=== PATIENT | male | born 1995 | race Caucasian/White ===

== ENCOUNTER 2021-09-04 16:17 | Emergency (ER) | payer OTHER, SELFPAY ==
[2021-09-04 16:19] VITALS: BP 127/81; PULSE 111; RESP 18; TEMP 36.6; O2SAT 98
--- NOTE | 2021-09-04 17:05 | PC.NURSE ---
Patient not found in [facility].
--- NOTE | 2021-09-04 17:54 | ED.GENADULT ---
HPI - General Adult General Chief complaint: Unspecified Stated complaint: sore throat Time Seen by Provider: 09/04/21 17:31 Source: patient Mode of arrival: ambulatory Limitations: no limitations History of Present Illness HPI narrative: Patient is a 25-year-old male complaining of a sore throat x5 days accompanied by fever. Patient states that he was seen in urgent care 3 days ago had a strep test done, was told it was negative, and was prescribed amoxicillin. Patient states he is able to swallow but it just hurts . Patient denies any chest pain, shortness of breath, abdominal pain, nausea or vomiting. Related Data Allergies Allergy/AdvReac Type Severity Reaction Status Date / Time No Known Allergies Allergy Unknown Unknown Verified 05/26/19 18:59 Review of Systems Review of Systems: All systems reviewed & are unremarkable except as noted in HPI and below Constitutional: Constitutional: Denies body ache(s), Denies chills, Denies excessive sweating, Denies fatigue, Denies fever(s), Denies headache(s), Denies lethargy, Denies malaise, Denies weakness and Denies weight loss Eyes: Eyes: Denies blurry vision, Denies change in vision and Denies loss of vision ENT: Denies dizziness, Denies ear discharge, Denies headache(s), Denies lip swelling, Denies epistaxis, Denies nasal congestion, Denies neck pain and Denies tongue swelling Cardiovascular: Cardiovascular: Denies chest pain, Denies chest pain at rest, Denies chest pain with activity, Denies diaphoresis, Denies rapid heart rate, Denies edema, Denies irregular heart rhythm, Denies lightheadedness, Denies palpitations, Denies dyspnea and Denies dyspnea on exertion Respiratory: Respiratory: Denies chest congestion, Denies cough, Denies hemoptysis, Denies dyspnea and Denies dyspnea on exertion Gastrointestinal: Gastrointestinal: Denies abdominal pain, Denies melena, Denies hematochezia, Denies diarrhea, Denies nausea, Denies vomiting and Denies hematemesis Musculoskeletal: Musculoskeletal: Denies abnormal gait, Denies deformity, Denies joint swelling, Denies limited range of motion, Denies neck pain and Denies numbness Neurologic: Denies Abnormal speech present, Denies abnormal gait, Denies confusion, Denies dizziness, Denies headache(s), Denies focal weakness, Denies loss of vision, Denies numbness, Denies Other visual disturbances, Denies Sensory deficit (Neuro) and Denies weakness Psychiatric: Psychiatric: Denies confusion, Denies depression, Denies auditory hallucinations, Denies homicidal ideation and Denies suicidal ideation Endocrine: Endocrine: Denies cold intolerance, Denies excessive sweating, Denies fatigue, Denies heat intolerance and Denies palpitations Hematologic/Lymphatic: Hematologic/Lymphatic: Denies easy bleeding and Denies easy bruising Allergic/Immunologic: Allergic/Immunologic: Denies lip swelling, Denies throat swelling and Denies tongue swelling PMFSH Comments Past medical history: None Family history: Unknown Social history: Vapes, no EtOH or drug use Exam Const: General: cooperative, healthy appearing, comfortable, no acute distress, well developed, alert and awake; No confusion Orientation/consciousness: oriented to person, oriented to place, oriented to time, patient oriented x3 and No confusion Limitations: no limitations HENMT: Head: normal to inspection, normocephalic and atraumatic Ears: hearing grossly normal bilaterally, TM normal on the right and TM normal on the left General nose exam: Normal external nose present, Normal nares present and No nasal discharge present Face and sinus: normal facial exam Mouth: Yes Normal oral and palatal mucosa present, Yes lip normal and Yes tongue normal Throat: posterior oropharynx abnormal edema, erythema and exudates and uvular edema Eyes: General: appearance normal, both eyes and all related structures Pupils: Equal, round and reactive pupils present EOM: EOMs intact bilaterally Neck: Neck: normal visual
[2021-09-04 18:14] VITALS: BP 140/77; PULSE 80; RESP 18; O2SAT 99
== END 2021-09-04 18:10 | disposition home or self-care (01) ==
PROVIDERS: Emergency Provider Emergency Medicine; PCP Pediatrics
DX: J02.9 Acute pharyngitis, unspecified (principal)
CPT/HCPCS: 99283; J1100

== ENCOUNTER 2023-07-18 15:29 | Emergency (ER) | payer OTHER, SELFPAY ==
[2023-07-18 15:40] VITALS: BP 130/86; PULSE 71; RESP 18; TEMP 36.9; O2SAT 100
[2023-07-18 16:09] LABS: Basophils Absolute Auto 0.1 K/mm3 (0.0-0.1); Eosinophils Absolute Auto 0.3 K/mm3 (0-0.3); Eosinophils Percent Auto 4.6 % (0-4.4); Hematocrit 44.5 % (42.0-52.0); Hemoglobin 14.9 g/dL (14.0-18.0); Immature Granulocyte Absolute 0.02 K/mm3 (0.00-0.031); Immature Granulocyte Percent A 0.3 % (0-0.5); Lymphocytes Absolute Auto 2.32 K/mm3 (0.9-3.2); Lymphocytes Percent Auto 39.1 % (18.3-44.2); Mean Corpuscular HGB Conc 33.5 g/dl (32-36); Mean Corpuscular Hemoglobin 27.7 pg (26-34); Mean Corpuscular Volume 82.9 fl (80-100); Mean Platelet Volume 10.9 fl (7.4-10.4); Monocytes Absolute Auto 0.7 K/mm3 (0.1-0.6); Monocytes Percent Auto 11.1 % (2.6-8.5); Neutrophils Absolute Auto 2.6 K/mm3 (1.3-6.7); Neutrophils Percent Auto 43.9 % (45.5-73.1); Platelet Count Result 173 k/mm3 (150-375); Red Blood Count 5.37 M/mm3 (4.6-6.20); Red Cell Distribution Width 12.4 % (11.5-14.5); White Blood Count 5.9 K/mm3 (4.5-10.0)
[2023-07-18 16:27] LABS: INR 1.1; Prothrombin Time 14.1 Seconds (11.1-14.7)
[2023-07-18 16:28] LABS: Partial Thromboplastin Time 29.3 SECONDS (22.3-36.8)
[2023-07-18 16:36] LABS: Alanine Aminotransferase 58 U/L (6-50); Albumin Level 4.6 g/dL (3.5-5.1); Alkaline Phosphatase 62 U/L (38-126); Anion Gap 9 mmol/L (8-16); Aspartate Amino Transferase 37 U/L (17-59); Bilirubin,Total 0.6 mg/dL (0.2-1.3); Blood Urea Nitrogen 15 mg/dL (9-20); Calcium 9.3 mg/dL (8.4-10.2); Carbon Dioxide 23 mmol/L (22-30); Chloride 108 mmol/L (98-107); Estimated CRCL calculation 169 ml/min; Estimated Glomerular Filt Rate > 60; Glucose 100 mg/dL (65-110); Sodium 140 mmol/L (137-145)
[2023-07-18 20:16] VITALS: BP 138/98; PULSE 82; RESP 14; O2SAT 100
--- NOTE | 2023-07-18 20:50 | ED.GENADULT ---
HPI - General Adult General Chief complaint: GI Bleed Stated complaint: rectal bleeding Time Seen by Provider: 07/18/23 20:26 History of Present Illness HPI narrative: Patient is a 27-year-old male who presents to the emergency department this evening complaining of bloody stools which he noticed today. patient states that after he had a bowel movement he noticed that there was blood in the toilet bowl, his stools were brown and a normal, blood was noted in the toilet bowl but not in the stool. Patient denies any history of hemorrhoids or any previous symptoms denies any history inflammatory bowel disease including Crohn's and ulcerative colitis. Patient denies any chest pain, shortness of breath, nausea, vomiting, abdominal pain, dysuria, hematuria, constipation, diarrhea, melena, hematochezia, fevers or chills. Patient also denies any headaches, dizziness, lightheadedness, blurry visions, focal weakness, numbness and or tingling. There are no other modifying, alleviating, or precipitating factors at this time. Related Data Allergies Allergy/AdvReac Type Severity Reaction Status Date / Time bee venom protein (honey bee) Allergy Swelling Verified 07/18/23 20:19 [bees] Review of Systems Review of Systems: All systems are reviewed and are negative unless stated otherwise in the HPI. Exam Narrative: General: Alert, awake, afebrile, in no acute distress. HEENT: PERRL, no rhinorrhea, no post nasal drip, oropharynx clear. Neck: Trachea midline, no JVD, no lymphadenopathy. Cardiovascular: Regular rate and rhythm, no murmurs, rubs or gallops, no peripheral edema. Respiratory: Clear to auscultation bilaterally, no tachypnea, no wheezing, no rhonchi, no rubs, no respiratory distress. Abdomen: Soft, nontender, nondistended, no rebound, no guarding, no peritoneal signs. Rectal: Exam performed the presence of female legal intern revealed normal external rectum, no fissures, no external hemorrhoids, digital rectal exam performed with fecal occult blood test performed and noted to be positive. No masses palpated during a digital rectal exam. Patient tolerated the procedure well. Musculoskeletal: No joint swelling or deformity, normal muscle tone. Skin: No rashes or petechia, no signs of infection. Psychiatric: Alert and oriented, normal behavior and judgment for situation. Neurological: Alert and oriented to person, place, and time. Follows all commands. No focal deficits, speech is clear and fluent. Course Vital Signs Vital signs: Vital Signs Temperature 98.5 F 07/18/23 15:40 Pulse Rate 71 07/18/23 15:40 Respiratory Rate 18 07/18/23 15:40 Blood Pressure 130/86 07/18/23 15:40 Pulse Oximetry 100 07/18/23 15:40 Oxygen Delivery Room Air 07/18/23 15:40 Temperature 98.5 F 07/18/23 15:40 Pulse Rate 70 07/18/23 21:06 Respiratory Rate 20 07/18/23 21:06 Blood Pressure 132/81 07/18/23 21:06 Pulse Oximetry 98 07/18/23 21:06 Oxygen Delivery Room Air 07/18/23 15:40 Medical Decision Making MDM Narrative Medical decision making narrative: The patient was evaluated by myself in the emergency department. History is obtained from patient who is an independent historian and physical exam was performed. External medical records were reviewed at this time. IV was established and pertinent tests were ordered. Laboratory results obtained revealing no lab abnormality, hemoglobin 14.9, BUN 15, creatinine 0.80. Differential diagnosis considerations include external versus internal hemorrhoids, fissures, and upper versus lower GI bleed. I have evaluated and discussed social determinants of health with the patient that could potentially impact subsequent diagnosis and treatment plans. On repeat assessment of the patient, reevaluation revealed that the patient is doing well and is in no acute distress. Patient symptoms have improved since he arrived to our emergency department. Repeat vit
[2023-07-18 21:06] VITALS: BP 132/81; PULSE 70; RESP 20; O2SAT 98
[2023-07-18 21:35] VITALS: BP 134/80; PULSE 63; RESP 12; O2SAT 98
== END 2023-07-18 21:35 | disposition home or self-care (01) ==
PROVIDERS: Emergency Medicine; Emergency Provider Emergency Medicine
DX: K92.1 Melena (principal)
CPT/HCPCS: 36415; 80053; 85025; 85610; 85730; 86850; 86900; 86901; 99283

== ENCOUNTER 2023-09-23 22:22 | Emergency (ER) | payer OTHER, SELFPAY ==
--- NOTE | ~2023-09-23 | XR_ITS ---
Clinical Indication: Fever PA and lateral views of the chest: Comparison: None Findings: The lungs are clear, without evidence of focal consolidation or pleural effusion. Cardiome diastinal silhouette is within normal limits. Bones and soft tissues are unremarkable. Impression: Normal chest. Reviewed, dictated and finalized at [facility]. [employer] Impression: Normal chest.
--- NOTE | ~2023-09-23 | CT_ITS ---
EXAMINATION: CT abdomen pelvis w con INDICATION: Back pain and vomiting TECHNIQUE: Computed tomographic images of the abdomen and pelvis were obtained after the administrati on of 100 cc of Omnipaque 350 intravenous contrast. The dose-length product (DLP) was 1524.99 mGy-cm. Automated exposure control and iterative reconstruction technique were employed. COMPARISON: None available FINDINGS: The lung bases are clear. The heart size is normal. The liver, spleen, pancreas, gallbladde r, and adrenal glands are normal. The kidneys are unremarkable. No pathologically enlarged abdominal or pelvic lymph nodes are identified. No free intraperitoneal gas or evidence of bowel obstruction. T he appendix is normal. There is an umbilical hernia containing fat. There are widespread subpleural a reas of hazy infiltration of the subcutaneous fat of the abdomen, pelvis, and proximal thighs unclear etiology. Correlate for bruising or injection sites. IMPRESSION: 1. No CT correlate for the patient's symptoms. Reviewed, dictated and finalized at location [facility]. ER ROOM MANAGER
[2023-09-23 22:24] VITALS: BP 159/110; PULSE 129; RESP 20; TEMP 37.9; O2SAT 100
[2023-09-23 23:16] LABS: Basophils Percent Auto 0.4 % (0.2-1.2); Eosinophils Absolute Auto 0.1 K/mm3 (0-0.3); Eosinophils Percent Auto 0.8 % (0-4.4); Hematocrit 42.5 % (42.0-52.0); Hemoglobin 14.4 g/dL (14.0-18.0); Immature Granulocyte Absolute 0.02 K/mm3 (0.00-0.031); Immature Granulocyte Percent A 0.2 % (0-0.5); Lymphocytes Absolute Auto 1.02 K/mm3 (0.9-3.2); Lymphocytes Percent Auto 12.1 % (18.3-44.2); Mean Corpuscular HGB Conc 33.9 g/dl (32-36); Mean Corpuscular Hemoglobin 28.1 pg (26-34); Mean Corpuscular Volume 82.8 fl (80-100); Mean Platelet Volume 10.6 fl (7.4-10.4); Monocytes Absolute Auto 0.9 K/mm3 (0.1-0.6); Monocytes Percent Auto 10.7 % (2.6-8.5); Neutrophils Absolute Auto 6.4 K/mm3 (1.3-6.7); Neutrophils Percent Auto 75.8 % (45.5-73.1); Platelet Count Result 163 k/mm3 (150-375); Red Blood Count 5.13 M/mm3 (4.6-6.20); White Blood Count 8.4 K/mm3 (4.5-10.0)
--- NOTE | 2023-09-23 23:19 | PC.NURSE ---
Pt states his lower bilateral legs are swollen and painful. Pt notes he has developed some red patches on the lower part of his legs as well. Pt also reports the same type of pain in his lower back however there are no red patches present. Pt denies any itching.
[2023-09-23 23:22] LABS: Influenza A QL RT-PCR Negative (Negative); Influenza B QL RT-PCR Negative (Negative); RSV RNA, RT-PCR Negative (Negative); SARS-CoV-2 RNA PCR Negative (Negative)
[2023-09-23 23:27] LABS: Appearance Urine Clear (Clear); Bilirubin Urine Negative (Negative); Blood Urine Negative (Negative); Color Urine Yellow (Yellow); Glucose Urine UA Negative (Negative); Ketones Urine 1+ mg/dL (Negative); Leukocyte Esterase Ur Negative LEU/UL (Negative); Nitrate Urine Negative (Negative); Protein Urine Negative (Negative); Specific Grav Ur 1.028 (1.001-1.035); pH Urine 6.5 (5.0-9.0)
[2023-09-23 23:27] LABS: Alanine Aminotransferase 38 U/L (6-50); Albumin Level 4.5 g/dL (3.5-5.1); Alkaline Phosphatase 78 U/L (38-126); Anion Gap 7 mmol/L (8-16); Aspartate Amino Transferase 28 U/L (17-59); Bilirubin,Total 1.1 mg/dL (0.2-1.3); Blood Urea Nitrogen 15 mg/dL (9-20); Calcium 9.3 mg/dL (8.4-10.2); Carbon Dioxide 28 mmol/L (22-30); Chloride 102 mmol/L (98-107); Creatine Kinase 82 U/L (55-170); Estimated CRCL calculation 166 ml/min; Estimated Glomerular Filt Rate > 60; Glucose 117 mg/dL (65-110); Lipase 135 U/L (23-300); Potassium 3.5 mmol/L (3.4-5.0); Sodium 137 mmol/L (137-145)
--- NOTE | 2023-09-23 23:35 | ED.GENADULT ---
HPI - General Adult General Chief complaint: Unspecified Stated complaint: bilateral leg pain, headache, acid reflux, Time Seen by Provider: 09/23/23 22:42 Source: patient Mode of arrival: ambulatory Limitations: no limitations History of Present Illness HPI narrative: This is a 27 year old male that presents to the ER for symptoms present over the last couple of days. Reports fever, headache, vomiting, arthralgia. Reports pain in his low back and hips. Reports today he started to note tender painful nodules on his bilateral lower legs. Denies chest pain or shortness of breath. Related Data Allergies Allergy/AdvReac Type Severity Reaction Status Date / Time bee venom protein (honey bee) Allergy Swelling Verified 07/18/23 20:19 [bees] Review of Systems Review of Systems: CONSTITUTIONAL: Reports fever ENT: Denies rhinorrhea, congestion, sore throat CARDIOVASCULAR: Denies chest pain RESPIRATORY: Denies cough or dyspnea. GASTROINTESTINAL: Reports nausea and vomiting. Denies abdominal pain, or diarrhea. GENITOURINARY: Denies dysuria MUSCULOSKELETAL: Reports back pain, joint pain, and myalgia. NEUROLOGIC: Denies numbness, or weakness. All systems reviewed & are unremarkable except as noted in HPI and below PMFSH Past Medical History Medical History (Updated 09/24/23 @ 00:49 by Varsha Finch PA-C) No active medical problems Social History Social History (Updated 09/23/23 @ 23:42 by Varsha Finch PA-C) Smoking status: Current every day smoker Tobacco type: e-cigarettes/vaping Exam Narrative: GENERAL: Well-appearing, well-nourished, and in no acute distress. HEAD: Normocephalic, atraumatic. EYES: PERRLA and EOMI. ENT: Nares clear, no rhinorrhea or epistaxis. Mucous membranes moist. Oropharynx without tonsillar hypertrophy exudate or other lesions. Bilateral TMs pearly tristan non-bulging NECK: Supple. No adenopathy or masses. CHEST: Clear to auscultation. No respiratory distress. No wheezes rales or rhonchi HEART: Regular rate and rhythm. No murmur heard. Normal peripheral pulses. ABDOMEN: Soft, nontender, nondistended, normal active bowel sounds. EXTREMITIES: Normal range of motion. No edema. Normal DP pulses. Normal sensation. Strength equal in bilateral lower extremities (5/5) SKIN: Warm, dry. Tender, painful red nodules on the bilateral lower legs NEURO: No focal deficits. Alert and oriented x3. Cranial nerves 2-12 grossly intact. Normal gait PSYCH: Normal mood and affect Course Course Emergency Course: Patient updated on his workup. Resting comfortably. Agrees with plan of care Vital Signs Vital signs: Vital Signs Temperature 100.2 F H 09/23/23 22:24 Pulse Rate 129 H 09/23/23 22:24 Respiratory Rate 20 09/23/23 22:24 Blood Pressure 159/110 H 09/23/23 22:24 Pulse Oximetry 100 09/23/23 22:24 Oxygen Delivery Room Air 09/23/23 22:24 Temperature 100.2 F H 09/23/23 22:24 Pulse Rate 100 09/24/23 00:34 Respiratory Rate 15 09/24/23 00:34 Blood Pressure 135/85 09/24/23 00:34 Pulse Oximetry 98 09/24/23 00:34 Oxygen Delivery Room Air 09/23/23 22:24 Medical Decision Making [facility] Narrative Medical decision making narrative: Patient presents to the emergency department for fever, low back pain, bilateral lower extremity painful nodules. Febrile and tachycardic upon arrival. Given antipyretic and IV fluids with relief. He is nontoxic appearing. He is neurologically intact. CBC without leukocytosis. Lactic acid is not elevated. UA without evidence of infection. Chest x-ray without acute cardiopulmonary abnormality. CT abdomen/pelvis without acute findings. Influenza, strep, COVID, RSV and mono tests are negative. Patient with likely viral infection causing erythema nodosum. Will be started on anti-inflammatories. He was updated on his workup and agrees with plan of care. He is to follow up with PCP. He was given warnings to return to the ER Vital Signs Vital Signs
[2023-09-23 23:43] LABS: Add Urine Microscopic? YES
[2023-09-23 23:55] LABS: Partial Thromboplastin Time 34.7 SECONDS (22.3-36.8); Prothrombin Time 13.7 Seconds (11.1-14.7)
[2023-09-24 00:10] LABS: Erythrocyte Sedimentation Rate 26 mm/hr (0-20)
[2023-09-24] MEDS: KETOROLAC 15 MG/ML VIAL (*BKC) IV PUSH (00:16)
[2023-09-24] MEDS: ONDANSETRON INJ 4 MG/2 ML VIAL IV PUSH (00:17)
[2023-09-24] MEDS: FAMOTIDINE 20 MG/2 ML VIAL IV PUSH (00:17)
[2023-09-24] MEDS: SODIUM CHLORIDE 0.9% IV 1,000 ML 999 ML IV CONT (00:17)
[2023-09-24 00:19] LABS: Monoscreen Negative (Negative); Negative Monotest Control Negative (Negative); Positive Monotest Control Positive (Positive)
[2023-09-24 00:21] LABS: CRP 5.7 mg/dL (<1.0)
[2023-09-24 00:33] LABS: Lactic Acid Reflex 1.1 mmol/L (0.7-2.0)
[2023-09-24 00:34] VITALS: BP 135/85; PULSE 100; RESP 15; O2SAT 98
[2023-09-24 01:19] LABS: Strep Group A RT-PCR NOT DETECTED (Negative)
[2023-09-24 01:51] VITALS: BP 117/74; PULSE 87; RESP 14; O2SAT 100
== END 2023-09-24 01:53 | disposition home or self-care (01) ==
PROVIDERS: Emergency Medicine; Emergency Provider Physician Assistant
DX: L52 Erythema nodosum (principal); F17.290 Nicotine dependence, other tobacco product, uncomplicated
CPT/HCPCS: 36415; 71046; 74177; 80053; 81001; 82550; 83605; 83690; 85025; 85610; 85652; 85730; 86140; 86308; 87637; 87651; 96361; 96374; 96375; 99284; J1885; J2405; J7030; Q9967